=== PATIENT | male | born 1960 | race Caucasian/White ===

== ENCOUNTER 2022-09-08 09:44 | Outpatient (CLI) | payer BC, SELFPAY ==
--- NOTE | 2022-09-08 10:17 | EST_ITS ---
Patient Info Name: Raj Santizo Age: 62 years : 1960 Gender: Male Ht: 71 in Wt: 285 lbs BSA: 2.60 m2 HR: 91 bpm BP: 135 / 96 mmHg Heart Rhythm: Sinus Rhythm Exam Date: 09/08/2022 10:43 AM Exam Location: [facility] Stress Patient Status: Outpatient Admit Date: 09/08/2022 Staff Ordering Physician: Laura Loyola NP Attending Provider: Laura Loyola NP Exercise Technologist: Aliza Sarabia, JAMILA Exercise Physician: Alfred Sauer DO Exam Type: CA stress test treadmill Study Info Indications R07.9 - Chest pain, unspecified A treadmill exercise stress test was performed. Summary 1. 1. Negative Phillip exercise stress test for ischemic ST changes by ECG criteria. 2. 2. Good functional capacity, achieving 10 METs of workload. 3. 3. Hypertensive response to exercise. 4. 4. Appropriate HR response to exercise. 5. 5. Appropriate HR recovery at 1 minute post exercise. 6. 6. No imaging with stress testing. 7. 7. Patient informed of the above results. Protocol: Phillip Stress ECG Details Stage: REST Duration (min): 8 min : 1 sec Speed (mph): 0.0 Grade (%): 0 HR (bpm): 99 SBP (mmHg): 135 DBP (mmHg): 96 METS: --- Stage: STAGE 1 Duration (min): 1 min : 0 sec Speed (mph): 1.7 Grade (%): 10 HR (bpm): 109 SBP (mmHg): 135 DBP (mmHg): 96 METS: --- Stage: STAGE 1 Duration (min): 2 min : 0 sec Speed (mph): 1.7 Grade (%): 10 HR (bpm): 115 SBP (mmHg): 135 DBP (mmHg): 96 METS: --- Stage: STAGE 1 Duration (min): 3 min : 0 sec Speed (mph): 1.7 Grade (%): 10 HR (bpm): 116 SBP (mmHg): 180 DBP (mmHg): 80 METS: --- Stage: STAGE 2 Duration (min): 1 min : 0 sec Speed (mph): 2.5 Grade (%): 12 HR (bpm): 120 SBP (mmHg): 180 DBP (mmHg): 80 METS: --- Stage: STAGE 2 Duration (min): 2 min : 0 sec Speed (mph): 2.5 Grade (%): 12 HR (bpm): 122 SBP (mmHg): 186 DBP (mmHg): 82 METS: --- Stage: STAGE 2 Duration (min): 3 min : 0 sec Speed (mph): 2.5 Grade (%): 12 HR (bpm): 123 SBP (mmHg): 186 DBP (mmHg): 82 METS: --- Stage: STAGE 3 Duration (min): 1 min : 0 sec Speed (mph): 3.4 Grade (%): 14 HR (bpm): 134 SBP (mmHg): 219 DBP (mmHg): 100 METS: --- Stage: STAGE 3 Duration (min): 2 min : 0 sec Speed (mph): 3.4 Grade (%): 14 HR (bpm): 139 SBP (mmHg): 219 DBP (mmHg): 100 METS: --- Stage: STAGE 3 Duration (min): 2 min : 0 sec Speed (mph): 3.4 Grade (%): 14 HR (bpm): 139 SBP (mmHg): 219 DBP (mmHg): 100 METS: --- Stage: RECOVERY Duration (min): 0 min : 59 sec Speed (mph): 0.0 Grade (%): 0 HR (bpm): 128 SBP (mmHg): 206 DBP (mmHg): 95 METS: --- Stage: RECOVERY Duration (min): 1 min : 59 sec Speed (mph): 0.0 Grade (%): 0 HR (bpm): 117 SBP (mmHg): 206 DBP (mmHg): 95 METS: --- Stage: RECOVERY Duration (min): 2 min : 59 sec Speed (mph): 0.0 Grade (%): 0 HR (bpm
== END 2022-09-08 09:45 | disposition home or self-care (01) ==
LOC: ANHCARD 09:45
PROVIDERS: PCP Nurse Practitioner Family; Visit Provider Nurse Practitioner Family
DX: R07.9 Chest pain, unspecified (principal); R68.89 Other general symptoms and signs
CPT/HCPCS: 93017

== ENCOUNTER 2023-03-25 12:05 | Emergency (ER) | payer BC, SELFPAY ==
[2023-03-25] VITALS (9 sets, daily range): BP systolic 105–146; BP diastolic 55–92; PULSE 95–108; RESP 14–18; TEMP 36.9; O2SAT 96–100
--- NOTE | 2023-03-25 12:52 | PC.NURSE ---
Pt found lying on floor in waiting room. States he feels better laying on cold tile floor. Denies fall, dizziness. Refuses to get up to w/c or waiting room chair.
[2023-03-25 12:55] LABS: Basophils Absolute Auto 0.2 K/mm3 (0.0-0.1); Basophils Percent Auto 0.9 % (0.2-1.2); Eosinophils Absolute Auto 0.6 K/mm3 (0-0.3); Eosinophils Percent Auto 3.3 % (0-4.4); Hematocrit 62.3 % (42.0-52.0); Hemoglobin 20.1 g/dL (14.0-18.0); Immature Granulocyte Absolute 0.48 K/mm3 (0.00-0.031); Immature Granulocyte Percent A 2.8 % (0-0.5); Lymphocytes Absolute Auto 2.62 K/mm3 (0.9-3.2); Lymphocytes Percent Auto 15.2 % (18.3-44.2); Mean Corpuscular HGB Conc 32.3 g/dl (32-36); Mean Corpuscular Hemoglobin 29.9 pg (26-34); Mean Corpuscular Volume 92.7 fl (80-100); Mean Platelet Volume 10.6 fl (7.4-10.4); Monocytes Absolute Auto 1.5 K/mm3 (0.1-0.6); Monocytes Percent Auto 8.6 % (2.6-8.5); Neutrophils Absolute Auto 11.9 K/mm3 (1.3-6.7); Neutrophils Percent Auto 69.2 % (45.5-73.1); Platelet Count Result 230 k/mm3 (150-375); Red Blood Count 6.72 M/mm3 (4.6-6.20); Red Cell Distribution Width 14.4 % (11.5-14.5); White Blood Count 17.2 K/mm3 (4.5-10.0)
[2023-03-25 13:12] LABS: Alanine Aminotransferase 16 U/L (6-50); Albumin Level 3.3 g/dL (3.5-5.1); Alkaline Phosphatase 82 U/L (38-126); Anion Gap 12 mmol/L (8-16); Aspartate Amino Transferase 37 U/L (17-59); Bilirubin,Total 0.7 mg/dL (0.2-1.3); Blood Urea Nitrogen 21 mg/dL (9-20); Carbon Dioxide 15 mmol/L (22-30); Chloride 107 mmol/L (98-107); Estimated CRCL calculation 71 ml/min; Estimated Glomerular Filt Rate 56; Glucose 188 mg/dL (65-110); Lipase 28 U/L (23-300); Potassium 4.3 mmol/L (3.4-5.0); Sodium 134 mmol/L (137-145)
[2023-03-25] MEDS: SODIUM CHLORIDE 0.9% IV 1,000 ML 999 ML IV CONT (13:20)
[2023-03-25] MEDS: SODIUM CHLORIDE 0.9% IV 1,000 ML 150 ML IV CONT (14:08)
[2023-03-25] MEDS: ONDANSETRON INJ 4 MG/2 ML VIAL IV PUSH ×2 (14:08→16:28)
--- NOTE | 2023-03-25 14:20 | ED.GENADULT ---
HPI - General Adult General Chief complaint: Nausea/Vomiting/Diarrhea Stated complaint: nausea, diarrhea Time Seen by Provider: 03/25/23 13:42 History of Present Illness HPI narrative: Patient is a 8-year-old male who presents to the emergency department this afternoon complaining of a nausea vomiting and diarrhea for the past 4 days. Patient states symptoms started with diarrhea for the past 4 days but yesterday he did have 1 episode of vomiting. Patient has been trying to stay hydrated and drink water and Pedialyte, however, he noticed that any time he drinks a large amount of water he has to go immediately to the. Patient denies any sick contacts at home but states that he has been around of large group of people recently not sure if any of them were sick. Patient denies any chest pain, shortness of breath, nausea, vomiting, abdominal pain, dysuria, hematuria, melena, hematochezia, fevers or chills. Patient also denies any headaches, dizziness, lightheadedness, blurry visions, focal weakness, numbness and or tingling. There are no other modifying, alleviating, or precipitating factors at this time. Related Data Home Medications Medication Instructions Recorded Confirmed fluticasone propionate 50 2 spray intranasal DAILY 10/06/22 01/28/23 mcg/actuation nasal spray,suspension (Flonase Allergy Relief) Allergies Allergy/AdvReac Type Severity Reaction Status Date / Time chlorpheniramine Allergy Intermediate HIVES/RASH Verified 03/25/23 13:21 diphenhydramine Allergy Unknown Unknown Verified 03/25/23 13:21 CHLORPHENIRAMINE MALEATE Allergy Intermediate HIVES/RASH Uncoded 01/28/23 11:41 DEXTROMETHORPHAN HBR Allergy Intermediate HIVES/RASH Uncoded 01/28/23 11:41 DIPHENHYDRAMINE HCL Allergy Intermediate HIVES/RASH Uncoded 01/28/23 11:41 PHENYLEPHRINE HCL Allergy Intermediate HIVES/RASH Uncoded 01/28/23 11:41 PHENYLPROPANOLAMINE HCL Allergy Intermediate HIVES/RASH Uncoded 01/28/23 11:41 XYLOMETAZOLINE HCL Allergy Intermediate HIVES/RASH Uncoded 01/28/23 11:41 Review of Systems Review of Systems: All systems are reviewed and are negative unless stated otherwise in the HPI. [facility] Past Medical History Medical History Acute sinusitis BMI 38.0-38.9,adult Chest pain Chronic back pain Chronic nasal congestion Decreased exercise tolerance Diabetes Encounter to establish care Erectile dysfunction Fatigue Hyperlipidemia Multiple lung nodules on CT CT 08/31/18 no interval change management specialist 15months in a few likely benign noncalcified pulmonary nodules. YARITZA (obstructive sleep apnea) Paresthesia Screening for colon cancer Sinusitis Sinusitis nasal Sleep apnea Surgical History Surgical History History of orthopedic surgery History of uvulopalatopharyngoplasty around year 1999 Family History Family History Father Hypertension Father Family history of diabetes mellitus in first degree relative Family history of coronary artery disease Social History Social History Smoking status: Never smoker Second hand tobacco smoke exposure: No Alcohol intake: current Alcohol use details: Occasionally Substance use: never Substance use type: does not use Lack of Transportation: No Lack of Food: Never True Current Housing: I Have Housing Concerned About Future Housing: No Difficulty Paying Gas/Electric Bills: No Difficulty Paying for Meds: No Currently Unemployed: No Education: Bachelor's Degree Difficulty w/ Childcare or Family Care: No Gender identity (if verbalized by the patient): Male Exam Narrative: General: Alert, awake, afebrile, in no acute distress. HEENT: PERRL, no rhinorrhea, no post nasal drip, oropharynx clear. Neck: Trachea midline, no JVD, no lymphadenopathy
[2023-03-25 14:31] LABS: Influenza A QL RT-PCR Negative (Negative); Influenza B QL RT-PCR Negative (Negative); SARS-CoV-2 RNA PCR Negative (Negative)
[2023-03-25 15:40] LABS: Appearance Urine Cloudy (Clear); Bacteria Urine None Seen /hpf; Bilirubin Urine 2+ (Negative); Blood Urine Negative (Negative); Color Urine Dark Yellow (Yellow); Glucose Urine UA Negative (Negative); Hyaline Casts Urine Present /lpf; Ketones Urine 2+ mg/dL (Negative); Leukocyte Esterase Ur Trace LEU/UL (Negative); Nitrate Urine Negative (Negative); Non Pathogenic Casts >20; Protein Urine 2+ mg/dL (Negative); RBC Urine 0-2 /hpf (0-2); Specific Grav Ur 1.033 (1.001-1.035); Squamous Epithelial Cell Urine Moderate /hpf (Few); WBC Urine 21-50 /hpf
[2023-03-25 15:45] LABS: Add Urine Microscopic? YES
== END 2023-03-25 16:37 | disposition home or self-care (01) ==
PROVIDERS: Emergency Provider Emergency Medicine; PCP Nurse Practitioner Family
DX: K52.9 Noninfective gastroenteritis and colitis, unspecified (principal); E86.0 Dehydration; D72.829 Elevated white blood cell count, unspecified; E11.9 Type 2 diabetes mellitus without complications; E78.5 Hyperlipidemia, unspecified; G47.33 Obstructive sleep apnea (adult) (pediatric); Z79.85 Long-term (current) use of injectable non-insulin antidiabetic drugs; Z79.84 Long term (current) use of oral hypoglycemic drugs
CPT/HCPCS: 36415; 80053; 81001; 83690; 85025; 87086; 87636; 96361; 96374; 96376; 99284; J2405; J7030

== ENCOUNTER → 2023-10-26 12:33 | Outpatient (CLI) | payer BC, SELFPAY ==
--- NOTE | ~2023-10-26 | XR_ITS ---
EXAMINATION: XR shoulder LT min 2V DATE: 10/26/2023 12:54 INDICATION: Left shoulder pain TECHNIQUE: AP internally and externally rotated, AP oblique externally rotated and transscapular Y vi ews of the left shoulder were obtained. COMPARISON: None FINDINGS: Normal alignment. No fracture. Glenohumeral joint is normal. Mild acromioclavicular osteoarthritis. There is erosive change along the greater tuberosity which can be seen in the setting of rotator cuff disease. Calcified nodule at the left lower lung zone consistent with old granulomatous disease. Sof t tissues are unremarkable. IMPRESSION: 1. Mild acromioclavicular osteoarthritis. 2. Erosive change at the left greater tuberosity which can be seen in the setting of rotator cuff dis ease. Reviewed, dictated and finalized at location B. IMPRESSION: 1. Mild acromioclavicular osteoarthritis. 2. Erosive change at the left greater tuberosity which can be seen in the setti ng of rotator cuff disease.
== END ==
PROVIDERS: PCP Nurse Practitioner Family; Visit Provider Nurse Practitioner Family
DX: M19.012 Primary osteoarthritis, left shoulder (principal)
CPT/HCPCS: 73030

== ENCOUNTER 2023-12-01 12:52 | Outpatient (CLI) | payer BC, SELFPAY ==
--- NOTE | ~2023-12-01 | CT_ITS ---
EXAMINATION:CT diagnostic chest wo con DATE: 12/01/2023 13:06 INDICATION: Other nonspecific abnormal finding of lung field. TECHNIQUE: Computed tomography (CT) of the chest was performed without intravenous contrast. Automate d exposure control and iterative reconstruction technique were employed. The dose-length product (DLP ) was 752.63 mGy-cm. COMPARISON: Chest CT 08/29/2018 FINDINGS: Calcified left lung nodules and calcified left hilar lymph nodes are consistent with old gr anulomatous disease. There is mild atelectasis in left lower lobe. No pleural effusion. The heart siz e is normal. There are coronary artery calcifications. There is a trace pericardial effusion. Calcifi cations in the liver and spleen are consistent with old granulomatous disease. There are 3 mm and 2 m m stones in right kidney. There is mild thoracic spondylosis. There are chronic compression fractures of T3 and T4. IMPRESSION: 1. No acute cardiopulmonary disease. Reviewed, dictated and finalized at location A.
== END 2023-12-01 12:53 | disposition home or self-care (01) ==
LOC: ANHIMG 12:53
PROVIDERS: PCP Nurse Practitioner Family; Visit Provider Nurse Practitioner Family
DX: R91.8 Other nonspecific abnormal finding of lung field (principal)
CPT/HCPCS: 71250